=== PATIENT | female | born 1995 | race African-American/Black ===

== ENCOUNTER → 2017-04-05 02:07 | Emergency (ER) | payer SELFPAY ==
[2017-04-05 02:56] LABS: Hematocrit 35 % (35-47); Hemoglobin 11.3 g/dl (12.0-16.0); Mean Corpuscular HGB Conc 33 g/dl (31-36); Mean Corpuscular Hemoglobin 25 pg (27-31); Mean Corpuscular Volume 75 fL (80-97); Mean Platelet Volume 10 um3 (7.4-10.4); Red Cell Distribution Width 16 % (10.5-15); White Blood Count 9.6 10^3/ul (3.5-10.8)
[2017-04-05 03:10] LABS: ALT 9 U/L (7-52); AST 13 U/L (13-39); Albumin 4.4 g/dL (3.2-5.2); Alkaline Phosphatase 31 U/L (34-104); Anion Gap 7 mmol/L (2-11); BUN/Creatinine Ratio 8.8 (8-20); Blood Urea Nitrogen 7 mg/dL (6-24); CO2 Carbon Dioxide 25 mmol/L (22-32); Calcium 9.4 mg/dL (8.6-10.3); Chloride 103 mmol/L (101-111); EGFR African American 116.4 (>60); EGFR Non-African American 90.5 (>60); Globulin 2.8 g/dL (2-4); Glucose 104 mg/dL (70-100); Magnesium 1.9 mg/dL (1.9-2.7); Potassium 3.4 mmol/L (3.5-5.0); Sodium 135 mmol/L (133-145); Total Protein 7.2 g/dL (6.4-8.9)
[2017-04-05 03:11] LABS: Acetaminophen < 15 mcg/mL; Alcohol < 10 mg/dL (<10); Salicylate < 2.50 mg/dL (<30)
[2017-04-05 04:26] LABS: TSH (Thyroid Stimulating Horm) 3.18 mcIU/mL (0.34-5.60)
--- NOTE | 2017-04-05 06:57 | ED ---
Xochitl Kaminski Edward, scribed for Ann Kendrick MD on 04/05/17 at 0220 . Psychiatric Complaint - HPI Summary HPI Summary: 21 y/o female presents to the ED c/o depressed starting last night. Pt states she felt overwhelmed last night and called her campus police. The symptoms are not aggravated or alleviated with anything. Pt is still feeling overwhelmed currently. - History Of Current Complaint Chief Complaint: EDMentalHealth Hx Obtained From: Patient Onset/Duration: Lasting Hours, Still Present Timing: Constant Character: Depressed Aggravating Factor(s): Nothing Alleviating Factor(s): Nothing Associated Signs And Symptoms: Positive: Negative PMH/Surg Hx/FS Hx/Imm Hx Previously Healthy: No Endocrine/Hematology History: Denies: Hx Diabetes Cardiovascular History: Denies: Hx Myocardial Infarction Infectious Disease History: No Infectious Disease History: Denies: Traveled Outside the [place] in Last 30 Days - Family History Known Family History: Positive: Unknown - Social History Occupation: Student Lives: Dormitory/Roommates Alcohol Use: Occasionally Hx Substance Use: No Substance Use Type: Reports: None Hx Tobacco Use: No Smoking Status (MU): Never Smoked Tobacco Review of Systems Constitutional: Negative Eyes: Negative ENT: Negative Cardiovascular: Negative Respiratory: Negative Gastrointestinal: Negative Genitourinary: Negative Musculoskeletal: Negative Skin: Negative Neurological: Negative Positive: Depressed All Other Systems Reviewed And Are Negative: No Physical Exam - Summary Physical Exam Summary: Appearance: Alert, conversive, nontoxic appearing Skin: Warm, dry, no mottling, no rashes, no contusions HEENT: EOMI, PERRL, moist mucous membranes Neck: No masses on the neck, supple Respiratory: Clear to auscultation, breath sounds present, no rales, no rhonchi , no wheezes Cardiovascular: RRR, pulses are symmetrical in both lower and upper extremities Abdomen: Soft, non-tender Bowel Sounds: Present Musculoskeletal: No CVA tenderness, no obvious deformity, moving all extremities in a grossly normal manner Neurological: A&Ox3, CN II-XII Intact, moving all extremities symmetrically Psychiatric: Normal affect and mood Triage Information Reviewed: Yes Vital Signs On Initial Exam: Initial Vitals Temp Pulse Resp BP Pulse Ox 98.5 F 78 16 104/61 100 04/05/17 02:11 04/05/17 02:11 04/05/17 02:11 04/05/17 02:11 04/05/17 02:11 Vital Signs Reviewed: Yes Diagnostics - Vital Signs Vital Signs Temp Pulse Resp BP Pulse Ox 04/05/17 02:11 98.5 F 78 16 104/61 100 - Laboratory Lab Results: Lab Results 04/05/17 04/05/17 Range/Units 02:45 02:45 WBC 9.6 (3.5-10.8) 10^3/ul RBC 4.60 (4.0-5.4) 10^6/ul Hgb 11.3 L (12.0-16.0) g/dl Hct 35 (35-47) % MCV 75 L (80-97) fL MCH 25 L (27-31) pg MCHC 33 (31-36) g/dl RDW 16 H (10.5-15) % Plt Count 207 (150-450) 10^3/ul MPV 10 (7.4-10.4) um3 Neut % (Auto) 54.7 (38-83) % Lymph % (Auto) 36.7 (25-47) % Warren % (Auto) 7.4 (1-9) % Eos % (Auto) 0.2 (0-6) % Baso % (Auto) 1.0 (0-2) % Absolute Neuts (auto) 5.2 (1.5-7.7) 10^3/ul Absolute Lymphs (auto) 3.5 (1.0-4.8) 10^3/ul Absolute Monos (auto) 0.7 (0-0.8) 10^3/ul Absolute Eos (auto) 0 (0-0.6) 10^3/ul Absolute Basos (auto) 0.1 (0-0.2) 10^3/ul Absolute Nucleated RBC 0 10^3/ul Nucleated RBC % 0.1 Sodium 135 (133-145) mmol/L Potassium 3.4 L (3.5-5.0) mmol/L Chloride 103 (101-111) mmol/L Carbon Dioxide 25 (22-32) mmol/L Anion Gap 7 (2-11) mmol/L BUN 7 (6-24) mg/dL Creatinine 0.80 (0.51-0.95) mg/dL Est GFR ( Amer) 116.4 (>60) Est GFR (Non-Af Amer) 90.5 (>60) BUN/Creatinine Ratio 8.8 (8-20) Glucose 104 H (70-100) mg/dL Calcium 9.4 (8.6-10.3) mg/dL Magnesium 1.9 (1.9-2.7) mg/dL Total Bilirubin 0.40 (0.2-1.0) mg/dL AST 13 (13-39) U/L ALT 9 (7-52) U/L Alkaline Phosphatase 31 L (34-104) U/L Total Protein 7.2 (6.4-8.9) g/dL Albumin 4.4 (3.2-5.2) g/dL Globulin 2.8 (2-4) g/dL Albumin/Globulin Ratio 1.6 (1-3) TSH 3.18 (0.34-5.60) mcIU/mL Salicylates < 2.50 (<30) mg/dL Acetaminophen < 15 mcg/mL Serum Alcohol < 10 (<10) mg/dL Result Diagrams: 04/05/17 02:45 04/05/17 02:45 Lab Statement: Any lab studies that have been ordered have been reviewed, and results considered in the medical decision making process. Course/Dx - Course Assessment/Plan: 21 y/o female presents to the ED c/o depressed starting last night. Pt states she felt overwhelmed last night and called her campus police. The symptoms are not aggravated or alleviated with anything. Pt will be signed out to the morning physician pending MHE and dispo. - Differential Dx/Clinical Impression Provider Diagnosis: Anxiety Discharge - Discharge Plan Condition: Stable Disposition: OTHER Discharge Disposition Comment: patient signed out to Dr. Ibrahim Referrals: [facility] [Primary Care Provider] - The documentation as recorded by the Xochitl marcial Edward accurately reflects the service I personally performed and the decisions made by me, Ann Kendrick MD.
[2017-04-05 07:29] LABS: Benzodiazepine Urine Screen None Detected (None Detect)
[2017-04-05 07:30] LABS: Urine Bacteria Absent (Absent); Urine Bilirubin Negative (Negative); Urine Glucose Negative (Negative); Urine Nitrite Negative (Negative)
[2017-04-05 08:19] VITALS: BP 96/57
--- NOTE | 2017-04-05 18:37 | ED ---
Alan Kaminski Angela, scribed for Mona Ibrahim MD on 04/05/17 at 1346 . Progress - Progress Note Progress Note: This pt was signed out by Dr. Kendrick, pending disposition, awaiting MHE. Pt was evaluated by Dr. Torres, who recommends discharge. Pt will be discharged with outpatient follow up at [facility]. Pt will be discharged to home in stable condition with a diagnosis of depressive disorder. Course/Dx - Diagnoses Provider Diagnoses: Depressive disorder The documentation as recorded by the Alan marcial Angela accurately reflects the service I personally performed and the decisions made by Alexandria yousif Abdul, MD.
== END | disposition home or self-care (01) ==
LOC: ED 02:07
DX: F32.9 Major depressive disorder, single episode, unspecified (principal)
CPT/HCPCS: 36415; 80053; 80307; 80320; 80329; 81003; 81015; 83735; 84443; 85025; 87086; 99283; G0480

== ENCOUNTER 2018-04-04 05:59 | Emergency (ER) | payer SELFPAY ==
--- NOTE | 2018-04-04 06:49 | ED ---
GI/ HPI - HPI Summary HPI Summary: Pt. is a 22 y.o female who presents to the ER for dysuria and frequency that started yesterday. Pt. has been taking pyridium without improvement. Denies associated sxs of fever, chills, N/V, flank pain, vaginal discharge. Pt. currently having menstrual cycle. Denies concern for STIs. Sxs are mild in severity. No current modifying factors. - History of Current Complaint Chief Complaint: EDUrogenitalProblems Time Seen by Provider: 04/04/18 06:21 Stated Complaint: UROGENITAL PROBLEMS Hx Obtained From: Patient Pain Intensity: 6 - Allergy/Home Medications Allergies/Adverse Reactions: Allergies Allergy/AdvReac Type Severity Reaction Status Date / Time No Known Allergies Allergy Verified 04/04/18 06:13 PMH/Surg Hx/FS Hx/Imm Hx Previously Healthy: Yes Endocrine/Hematology History: Denies: Hx Diabetes Cardiovascular History: Denies: Hx Myocardial Infarction Psychiatric History: Denies: Hx Eating Disorder, Hx of Violent Episodes Against Others Infectious Disease History: No Infectious Disease History: Denies: Traveled Outside the [place] in Last 30 Days - Family History Known Family History: Positive: Unknown, Non-Contributory - Social History Occupation: Student Lives: Dormitory/Roommates Alcohol Use: Occasionally Hx Substance Use: No Substance Use Type: Reports: None Hx Tobacco Use: No Smoking Status (MU): Never Smoked Tobacco Review of Systems Constitutional: Negative Negative: Fever, Chills Gastrointestinal: Negative Negative: Abdominal Pain, Vomiting, Nausea Positive: dysuria, frequency. Negative: flank pain, hematuria All Other Systems Reviewed And Are Negative: Yes Physical Exam Triage Information Reviewed: Yes Vital Signs On Initial Exam: Initial Vitals Temp Pulse Resp BP Pulse Ox 97.4 F 86 16 123/57 98 04/04/18 06:09 04/04/18 06:09 04/04/18 06:09 04/04/18 06:09 04/04/18 06:09 Vital Signs Reviewed: Yes Appearance: Positive: Well-Appearing - Pt. sitting up in bed in NAD. Friend present. Skin: Positive: Warm, Dry Head/Face: Positive: Normal Head/Face Inspection Eyes: Positive: Normal, EOMI Neck: Positive: Supple Respiratory/Lung Sounds: Positive: Clear to Auscultation, Breath Sounds Present Cardiovascular: Positive: Normal, RRR Abdomen Description: Positive: Nontender, Soft. Negative: CVA Tenderness (R), CVA Tenderness (L) Neurological: Positive: Normal, CN Intact II-III Psychiatric: Positive: Affect/Mood Appropriate Diagnostics - Vital Signs Vital Signs Temp Pulse Resp BP Pulse Ox 04/04/18 06:09 97.4 F 86 16 123/57 98 - Laboratory Lab Statement: Any lab studies that have been ordered have been reviewed, and results considered in the medical decision making process. GIGU Course/Dx - Course Course Of Treatment: Pt. presenting for dyrsuria. She is afebrile with stable VS. Benign exam without abd. or flank pain. U/A is contaminated and pt. is taking pyridium but it does show RBCs, nitrate positive with leukocytes. Given sxs will treat for suspected UTI. Rx for keflex sent to pharm. To f.u with the [facility]. To increase fluids. Tylenol or motrin for pain as directed. Return to ER for fever, vomiting, flank pain or if concerned. Pt. understands and agrees with plan. - Diagnoses Differential Diagnoses - Female: Pelvic Inflammatory Disease, Renal Colic, STD, Urinary Tract Infection, Ureteral Calculi Provider Diagnoses: UTI (urinary tract infection) Discharge - Sign-Out/Discharge Documenting (check all that apply): Patient Departure - Discharge Plan Condition: Good Disposition: HOME Prescriptions: Cephalexin CAP* [Keflex CAP*] 500 mg PO BID #20 cap Patient Education Materials: Urinary Tract Infection in Women (ED) [facility] [[facility]BUSINESS, APPLICATION, OTHER] - Additional Instructions: Schedule a follow up appointment with health clinic Take antibiotic as directed Tylenol or Motrin for pain as directed Return to ER for fever, vomiting, flank pain or if concerned - Billing Disposition and Condition Condition: GOOD Disposition: Home
[2018-04-04 07:22] LABS: Urine Appearance Cloudy; Urine Blood 3+ (Negative); Urine Color Amber; Urine Ketones Negative (Negative); Urine Protein 2+(100 mg/dL) (Negative); Urine Red Blood Cell 3+(>10/hpf) (Absent); Urine Specific Gravity 1.005 (1.010-1.030); Urine Urobilinogen Positive (Negative); Urine White Blood Cell 3+(>20/hpf) (Absent)
[2018-04-04 08:08] VITALS: BP 89/75
--- NOTE | 2018-04-07 08:01 | ED ---
Progress - Progress Note Progress Note: Patient's preliminary urine culture reveals 75-100,000 Escherichia coli and 75- 100,000 Citrobacter koseri. She was started on Keflex, final results pending. Course/Dx - Course Course Of Treatment: Pt. presenting for dyrsuria. She is afebrile with stable VS. Benign exam without abd. or flank pain. U/A is contaminated and pt. is taking pyridium but it does show RBCs, nitrate positive with leukocytes. Given sxs will treat for suspected UTI. Rx for keflex sent to pharm. To f.u with the [facility] clinic. To increase fluids. Tylenol or motrin for pain as directed. Return to ER for fever, vomiting, flank pain or if concerned. Pt. understands and agrees with plan. - Diagnoses Provider Diagnoses: UTI (urinary tract infection) Discharge - Sign-Out/Discharge Documenting (check all that apply): Post-Discharge Follow Up - Discharge Plan Condition: Good Disposition: HOME Prescriptions: Cephalexin CAP* [Keflex CAP*] 500 mg PO BID #20 cap Patient Education Materials: Urinary Tract Infection in Women (ED) Referrals: [facility], [[employer], APPLICATION, OTHER] - Additional Instructions: Schedule a follow up appointment with [facility] clinic Take antibiotic as directed Tylenol or Motrin for pain as directed Return to ER for fever, vomiting, flank pain or if concerned - Billing Disposition and Condition Condition: GOOD Disposition: Home
== END 2018-04-04 08:08 | disposition home or self-care (01) ==
LOC: ED 05:59
DX: N39.0 Urinary tract infection, site not specified (principal); B96.20 Unspecified Escherichia coli [E. coli] as the cause of diseases classified elsewhere; B96.89 Other specified bacterial agents as the cause of diseases classified elsewhere
CPT/HCPCS: 81003; 81015; 87077; 87086; 87186; 99282

== ENCOUNTER 2019-07-07 16:51 | Emergency (ER) | payer OTHER ==
--- NOTE | 2019-07-07 16:56 | UC ---
Complaint Female HPI - HPI Summary HPI Summary: 23 yo female presents with dysuria. She tells me that about 2 weeks ago she had urinary burning, frequency, and bladder pressure. She then got her period 2-3 days later and did not notice any more urinary symptoms. Yesterday she developed the above symptoms again and have persisted into today. She has had UTIs in the past and states this feels the same - last UTI was about 2 years ago. Nothing OTC for her symptoms. Denies abdominal pain, n/v, hematuria, flank pain. - History Of Current Complaint Stated Complaint: URINARY COMPLAINT Time Seen by Provider: 07/07/19 16:56 Hx Obtained From: Patient Onset/Duration: Sudden Onset Severity Initially: Mild Severity Currently: Mild Pain Intensity: 3 Pain Scale Used: 0-10 Numeric - Allergies/Home Medications Allergies/Adverse Reactions: Allergies Allergy/AdvReac Type Severity Reaction Status Date / Time No Known Allergies Allergy Verified 07/07/19 17:19 Home Medications: Home Medications Oral Control 1 tab PO DAILY 07/07/19 [History Confirmed 07/07/19] PMH/Surg Hx/FS Hx/Imm Hx - Additional Past Medical History Additional PMH: None - Surgical History Surgical History: None - Family History Known Family History: Positive: Non-Contributory - Social History Occupation: Student Lives: Dormitory/Roommates Alcohol Use: Occasionally Substance Use Type: None Smoking Status (MU): Never Smoked Tobacco Review of Systems All Other Systems Reviewed And Are Negative: No Constitutional: Positive: Negative Skin: Positive: Negative Respiratory: Positive: Negative Cardiovascular: Positive: Negative Genitourinary: Positive: Dysuria Neurological/Mental Status: Positive: Negative Psychological: Positive: Negative Physical Exam - Summary Physical Exam Summary: GENERAL: NAD. WDWN. No pain distress. SKIN: No rashes, sores, lesions, or open wounds. NECK: Supple. Nontender. No lymphadenopathy. CHEST: CTAB. No r/r/w. No accessory muscle use. Breathing comfortably and in no distress. CV: RRR. Pulses intact. Cap refill <2seconds ABDOMEN: Soft. NTTP. No distention or guarding. No CVA tenderness. Bowel sounds present NEURO: Alert. PSYCH: Age appropriate behavior. Triage Information Reviewed: Yes Vital Signs: Vital Signs: Temp Pulse Resp BP Pulse Ox 98.1 F 72 16 107/71 100 07/07/19 17:15 07/07/19 17:15 07/07/19 17:15 07/07/19 17:15 07/07/19 17:15 Laboratory Tests 07/07/19 17:23 POC Urine Color Light yellow POC Urine Clarity Clear POC Urine pH 7.0 POC Ur Specif [place] 1.010 POC Urine Protein Negative POC Ur Glucose (UA) Negative POC Urine Ketones Negative POC Urine Blood 1+ A POC Urine Nitrite Negative POC Urine Bilirubin Negative POC Urine Urobilinogen 0.2 POC U Leukocyte Esteras Negative Vital Signs Reviewed: Yes Complaint Female Dx - Course Course Of Treatment: UA as above. Discussed with pt. Will send urine for culture and treat if needed. Recommend f/u with [facility] if symptoms do not improve and urine negative - Differential Dx/Diagnosis Provider Diagnosis: Dysuria Discharge ED - Sign-Out/Discharge Documenting (check all that apply): Patient Departure All imaging exams completed and their final reports reviewed: No Studies - Discharge Plan Condition: Stable Disposition: HOME Patient Education Materials: Dysuria (ED) Referrals: Bethany Woodson MD [Primary Care Provider] - Additional Instructions: Your urine did not show any sign of infection in the clinic today, but we have sent this to the lab for further testing and we will call you with any needed changes to your treatment. If you develop a fever, worsening symptoms, or new symptoms - please be rechecked. - Billing Disposition and Condition Condition: STABLE Disposition: Home
[2019-07-07 17:19] VITALS: BP 107/71
--- NOTE | 2019-07-09 16:38 | UC ---
- Progress Note Progress Note: PATIENT CALLED. ADVISED THAT URINE CULTURE SHOWED MIXED CHRISTIANO AND POSSIBLE CONTAMINATION. SHE STATES SHE IS FEELING MOSTLY BETTER BUT NOT YET 100%. SHE WILL WAIT A FEW MORE DAYS AND IF SYMPTOMS DO NOT CONTINUE TO IMPROVE WILL SEEK REEVALUATION EITHER HERE OR AT [facility]. Course/Dx - Diagnoses Provider Diagnoses: Dysuria Discharge ED - Sign-Out/Discharge Documenting (check all that apply): Post-Discharge Follow Up All imaging exams completed and their final reports reviewed: No Studies - Discharge Plan Condition: Stable Disposition: HOME Patient Education Materials: Dysuria (ED) Referrals: Bethany Woodson MD [Primary Care Provider] - Additional Instructions: Your urine did not show any sign of infection in the clinic today, but we have sent this to the lab for further testing and we will call you with any needed changes to your treatment. If you develop a fever, worsening symptoms, or new symptoms - please be rechecked. - Billing Disposition and Condition Condition: STABLE Disposition: Home
== END 2019-07-07 17:44 | disposition home or self-care (01) ==
LOC: UCEAST 16:51
DX: R30.0 Dysuria (principal)
CPT/HCPCS: 81003; 87086; 99211; G0463

== ENCOUNTER 2019-08-07 17:03 | Emergency (ER) | payer OTHER ==
[2019-08-07 17:58] VITALS: BP 107/69
--- NOTE | 2019-08-07 18:09 | UC ---
Throat Pain/Nasal Corey HPI - HPI Summary HPI Summary: 23 year old female presents with complaints of sore throat and mild right ear ache since yesterday. Symptoms associated with mild nasal congestion. Denies fever, chills, headache, ear drainage, dysphagia, cough, chest pain, shortness of breath, abdominal pain, nausea, or vomiting. - History of Current Complaint Chief Complaint: UCRespiratory Stated Complaint: SORE THROAT Time Seen by Provider: 08/07/19 17:58 Hx Obtained From: Patient Hx Last Menstrual Period: 1 week ago Pain Intensity: 6 - Allergies/Home Medications Allergies/Adverse Reactions: Allergies Allergy/AdvReac Type Severity Reaction Status Date / Time No Known Allergies Allergy Verified 08/07/19 17:58 Home Medications: Home Medications Oral Control 1 tab PO DAILY 07/07/19 [History Confirmed 08/07/19] Naproxen Sodium [Naproxen 220 mg] 220 mg PO BID PRN 08/07/19 [History Confirmed 08/07/19] PMH/Surg Hx/FS Hx/Imm Hx Previously Healthy: Yes - Denies significant PMH - Surgical History Surgical History: None - Family History Family History: Denies significant FMH - Social History Occupation: Employed Full-time Lives: Alone Alcohol Use: Occasionally Substance Use Type: Marijuana Substance Use Comment - Amount & Last Used: about every 2 weeks Smoking Status (MU): Never Smoked Tobacco Review of Systems All Other Systems Reviewed And Are Negative: Yes Constitutional: Negative: Fever, Chills Skin: Negative: Rash Eyes: Negative: Drainage, Eye Redness ENT: Positive: Sore Throat, Ear Ache. Negative: Nasal Discharge, Sinus Congestion, Sinus Pain/Tenderness Respiratory: Negative: Shortness Of Breath, Cough Cardiovascular: Negative: Chest Pain Gastrointestinal: Negative: Abdominal Pain, Vomiting, Nausea Genitourinary: Positive: Negative Musculoskeletal: Positive: Negative Neurological/Mental Status: Positive: Negative Is Patient Immunocompromised?: No Physical Exam - Summary Physical Exam Summary: GENERAL APPEARANCE: Well developed, well nourished, alert and cooperative, and appears to be in no acute distress. EYES: Conjunctiva clear. No drainage. EARS: External auditory canals and tympanic membranes clear, hearing grossly intact. NOSE: Mild nasal congestion. No discharge. THROAT: Mild pharyngeal erythema. No tonsilar inflammation, swelling, exudate, or lesions. Uvula midline. NECK: Neck supple, non-tender without lymphadenopathy. CARDIAC: Normal S1 and S2. No S3, S4 or murmurs. Rhythm is regular. There is no peripheral edema, cyanosis or pallor. Extremities are warm and well perfused. Capillary refill is less than 2 seconds. Peripheral pulses intact. LUNGS: Clear to auscultation without rales, rhonchi, wheezing or diminished breath sounds. ABDOMEN: Positive bowel sounds. Soft, nondistended, nontender. No guarding or rebound. No masses or hepatosplenomegally. MUSKULOSKELETAL: ROM intact to all extremities. No joint erythema or tenderness. Normal muscular development. Normal gait. SKIN: Skin normal color, texture and turgor with no lesions or eruptions. Triage Information Reviewed: Yes Vital Signs: Initial Vital Signs Temp 97.6 F 08/07/19 17:52 Pulse 92 08/07/19 17:52 Resp 16 08/07/19 17:52 BP 107/69 08/07/19 17:52 Pulse Ox 99 08/07/19 17:52 Vital Signs Reviewed: Yes Throat Pain/Nasal Course/Dx - Course Course Of Treatment: 23 year old female presents with complaints of sore throat and mild right ear ache since yesterday. Symptoms associated with mild nasal congestion. Denies fever, chills, headache, ear drainage, dysphagia, cough, chest pain, shortness of breath, abdominal pain, nausea, or vomiting. Afebrile. VSS. Patient had mild nasal congestion, normal TMs, mild pharyngeal erythema without tonsilar swelling or exudate, no cervical lymphadenopathy, clear bilateral breath sounds , and otherwise unremarkable exam. Rapid strep test negative. Reviewed results with patient and recommending symptomatic treatment for viral pharyngitis. She is to follow up with her PCP in 5-7 days if symptoms persist. Anticipatory guidance and warning symptoms reviewed with patient. Verbalizes understanding and agrees with POC. - Differential Dx/Diagnosis Differential Diagnosis/HQI/PQRI: Mononucleosis, Pharyngitis, Tonsillitis, URI Provider Diagnosis: Acute viral pharyngitis Discharge ED - Sign-Out/Discharge Documenting (check all that apply): Patient Departure All imaging exams completed and their final reports reviewed: No Studies - Discharge Plan Condition: Stable Disposition: HOME Patient Education Materials: Pharyngitis (ED) Forms: *Work Release Referrals: Bethany Woodson MD [Primary Care Provider] - 5 Days Additional Instructions: Your rapid strep test in the clinic today was negative. Your symptoms are likely from a viral infection. Viral infections do not respond to antibiotics and are limited to the treatment of symptoms. Viral infections typically run their course in 7-10 days. Drink plenty of fluids to avoid dehydration especially if you are running any fever. Use salt water gargles several times a day. Take over the counter acetaminophen (Tylenol) or ibuprofen (Advil, Motrin) according to directions as needed for pain or fever. You may also use Chloraseptic spray or Cepacol lonzenges according to directions which contain a numbing medication and can provide some temporary relief from your sore throat. Return here or follow up with your primary care provider in 7 days if symptoms persist. Seek immediate medical attention in the emergency room if you have fever greater than 100.5 F despite taking acetaminophen or ibuprofen, are unable to swallow or develop drooling, are unable to open your mouth fully, are unable to eat or drink, have pain that is not relieved with over the counter pain medication, or have any difficulty breathing. - Billing Disposition and Condition Condition: STABLE Disposition: Home
== END 2019-08-07 18:35 | disposition home or self-care (01) ==
LOC: UCEAST 17:03
DX: J02.8 Acute pharyngitis due to other specified organisms (principal); R09.81 Nasal congestion; H92.01 Otalgia, right ear
CPT/HCPCS: 87651; 99211; G0463